=== PATIENT | female | born 1950 | race Caucasian/White ===

== ENCOUNTER 2023-11-19 10:57 | Emergency (ER) | payer MEDICARE, BC ==
[~2023-11-19] VITALS: Ht 154.9 cm; Wt 48.0 kg
[2023-11-19 13:40] VITALS: BP 134/79; TEMP 98.4
[2023-11-19 14:06] VITALS: PULSE 71; RESP 16; O2SAT 98
== END 2023-11-19 14:42 | disposition home or self-care (01) ==
LOC: ER 10:57
DX: M19.071 Primary osteoarthritis, right ankle and foot (principal); M25.571 Pain in right ankle and joints of right foot; Z98.890 Other specified postprocedural states; Z88.8 Allergy status to other drugs, medicaments and biological substances
CPT/HCPCS: 73610